=== PATIENT | female | born 1960 | race Caucasian/White ===

== ENCOUNTER 2016-08-28 11:09 | Emergency (ER) | payer BC | END 2016-08-28 11:34 | disposition left against medical advice (07) | LOC: UCCORT 11:09 | DX: R05 Cough (principal); R50.9 Fever, unspecified; Z53.21 Procedure and treatment not carried out due to patient leaving prior to being seen by health care provider ==

== ENCOUNTER 2018-10-02 08:44 | Emergency (ER) | payer BC ==
[2018-10-02 09:03] VITALS: BP 122/89
--- NOTE | 2018-10-02 09:54 | UC ---
Throat Pain/Nasal Manolo HPI - HPI Summary HPI Summary: 58-year-old woman comes in with a chief complaint of 2-3 days of upper respiratory tract infection symptoms. Initially started as runny nose fever bodyaches and dry cough. [id number] medications helped with the fevers and body aches. Rhinorrhea is yellow. She has a sore throat when she coughs otherwise it does not hurt when she swallows. No shortness of breath. - History of Current Complaint Chief Complaint: UCRespiratory Stated Complaint: SINUS CONGESTION,ST Time Seen by Provider: 10/02/18 09:45 Pain Intensity: 1 - Allergies/Home Medications Allergies/Adverse Reactions: Allergies Allergy/AdvReac Type Severity Reaction Status Date / Time codeine Allergy Hallucinati Verified 10/02/18 09:03 ons meperidine [From Demerol] Allergy See Comment Verified 10/02/18 09:03 Home Medications: Home Medications Acetaminophen [Tylophen] 1,000 mg PO 10/02/18 [History] Aspirin 81 mg CHEW TAB* [Aspirin Low Dose TAB*] 81 mg PO DAILY 10/02/18 [ History Confirmed 10/02/18] Metoprolol Tartrate TAB* [Lopressor TAB*] 25 mg PO DAILY 10/02/18 [History Confirmed 10/02/18] Omeprazole 40 mg PO 10/02/18 [History] buPROPion TAB* [Wellbutrin TAB*] 150 mg PO DAILY 10/02/18 [History Confirmed 02/12] PMH/Surg Hx/FS Hx/Imm Hx Previously Healthy: Yes Cardiovascular History: Hypertension GI/ History: Gastroesophageal Reflux - Surgical History Surgical History: Yes Surgery Procedure, Year, and Place: "years ago" - Family History Known Family History: Positive: Non-Contributory - Social History Alcohol Use: Occasionally Substance Use Type: None Smoking Status (MU): Never Smoked Tobacco Review of Systems All Other Systems Reviewed And Are Negative: Yes Constitutional: Positive: Fever, Chills Skin: Positive: Negative Eyes: Positive: Negative ENT: Positive: Sore Throat, Nasal Discharge, Sinus Congestion Respiratory: Positive: Cough Cardiovascular: Positive: Negative Gastrointestinal: Positive: Negative Motor: Positive: Negative Neurovascular: Positive: Negative Neurological: Positive: Negative Is Patient Immunocompromised?: No Physical Exam Triage Information Reviewed: Yes Appearance: No Pain Distress, Well-Nourished, Ill-Appearing - MILD Vital Signs: Initial Vital Signs Temp 98.3 F 10/02/18 09:00 Pulse 77 10/02/18 09:00 Resp 18 10/02/18 09:00 BP 122/89 10/02/18 09:00 Pulse Ox 98 10/02/18 09:00 Vital Signs Reviewed: Yes Eye Exam: Normal Eyes: Positive: Conjunctiva Clear ENT: Positive: Pharyngeal erythema, Nasal congestion, Nasal drainage, TMs normal Neck exam: Normal Neck: Positive: Supple Respiratory: Positive: Lungs clear, Normal breath sounds, No respiratory distress Cardiovascular: Positive: RRR Musculoskeletal Exam: Normal Musculoskeletal: Positive: Strength Intact, ROM Intact Neurological Exam: Normal Neurological: Positive: Alert, Muscle Tone Normal Psychological Exam: Normal Psychological: Positive: Age Appropriate Behavior Skin Exam: Normal Throat Pain/Nasal Course/Dx - Course Course Of Treatment: DISCUSSED VIRAL VERSES BACTERIAL INFECTION AND THE ROLE OF ANTIBIOTICS. THE PATIENT WISHES TO BE ON ANTIBIOTIC AT THIS TIME. - Differential Dx/Diagnosis Provider Diagnosis: Upper respiratory infection Discharge - Sign-Out/Discharge Documenting (check all that apply): Patient Departure All imaging exams completed and their final reports reviewed: No Studies - Discharge Plan Condition: Stable Disposition: HOME Prescriptions: Azithromyxin BRENT (NF) [Z-Brent (Zithromax) 250 mg tabs #6] 2 tab PO .TODAY, THEN 1 DAILY #6 tab Patient Education Materials: Upper Respiratory Infection (ED) Forms: *Work Release Referrals: Jai Powell MD [Primary Care Provider] - Additional Instructions: FOLLOW UP WITH YOUR DOCTOR IF NOT COMPLETELY IMPROVED. GET RECHECKED SOONER WITH ANY WORSENING OF YOUR CONDITION OR QUESTIONS OR CONCERNS. - Billing Disposition and Condition Condition: STABLE Disposition: Home
== END 2018-10-02 09:59 | disposition home or self-care (01) ==
LOC: UCCORT 08:44
DX: J06.9 Acute upper respiratory infection, unspecified (principal); I10 Essential (primary) hypertension; K21.9 Gastro-esophageal reflux disease without esophagitis; Z79.899 Other long term (current) drug therapy; Z88.5 Allergy status to narcotic agent
CPT/HCPCS: 99212; G0463

== ENCOUNTER 2019-09-22 12:33 | Emergency (ER) | payer BC ==
[2019-09-22 14:05] VITALS: BP 124/84
--- NOTE | 2019-09-22 14:33 | UC ---
FLU HPI - HPI Summary HPI Summary: 59-year-old female presents with one-day history of general malaise, fatigue, headache, body aches, nasal congestion, sore throat, and a nonproductive cough. No measured fever but reports chills. Reports her grandson was evaluated at [facility] 2 days ago and tested positive for influenza B. Denies ear pain , dysphagia, chest pain, shortness of breath, abdominal pain, nausea, or vomiting. - History of Current Complaint Chief Complaint: UCRespiratory Stated Complaint: FLU SXS Time Seen by Provider: 09/22/19 14:02 Hx Obtained From: Patient Pain Intensity: 3 - Allergy/Home Medications Allergies/Adverse Reactions: Allergies Allergy/AdvReac Type Severity Reaction Status Date / Time codeine Allergy Hallucinati Verified 10/02/18 09:03 ons meperidine [From Demerol] Allergy See Comment Verified 10/02/18 09:03 PMH/Surg Hx/FS Hx/Imm Hx Previously Healthy: Yes Cardiovascular History: Hypertension GI/ History: Gastroesophageal Reflux Psychological History: Depression - Surgical History Surgical History: Yes Surgery Procedure, Year, and Place: hysterectomy. bladder lift then removal - Family History Known Family History: Positive: Non-Contributory - Social History Occupation: Employed Full-time Lives: With Family Alcohol Use: Occasionally Substance Use Type: None Smoking Status (MU): Never Smoked Tobacco Review of Systems All Other Systems Reviewed And Are Negative: Yes Constitutional: Positive: Chills, Fatigue Eyes: Negative: Drainage, Eye Redness ENT: Positive: Sore Throat, Nasal Discharge, Sinus Congestion. Negative: Ear Ache, Sinus Pain/Tenderness Respiratory: Positive: Cough. Negative: Shortness Of Breath Cardiovascular: Negative: Palpitations, Chest Pain Gastrointestinal: Negative: Abdominal Pain, Vomiting, Diarrhea, Nausea Genitourinary: Positive: Negative Musculoskeletal: Positive: Myalgia Neurological: Positive: Headache Is Patient Immunocompromised?: No Physical Exam - Summary Physical Exam Summary: GENERAL APPEARANCE: Well developed, well nourished, alert and cooperative, and appears to be in no acute distress. EYES: Conjunctiva clear. No drainage. EARS: External auditory canals and tympanic membranes clear, hearing grossly intact. NOSE: Mild-moderate congestion. Clear nasal discharge. THROAT: Pharyngeal erythema. No tonsilar inflammation, swelling, exudate, or lesions. Uvula midline. NECK: Neck supple, non-tender without lymphadenopathy. CARDIAC: Normal S1 and S2. No S3, S4 or murmurs. Rhythm is regular. There is no peripheral edema, cyanosis or pallor. Extremities are warm and well perfused. Capillary refill is less than 2 seconds. Peripheral pulses intact. LUNGS: Clear to auscultation without rales, rhonchi, wheezing or diminished breath sounds. Dry, nonproductive cough. ABDOMEN: Positive bowel sounds. Soft, nondistended, nontender. No guarding or rebound. No masses or hepatosplenomegally. MUSKULOSKELETAL: ROM intact to all extremities. No joint erythema or tenderness. Normal muscular development. Normal gait. SKIN: Skin normal color, texture and turgor with no lesions or eruptions. Triage Information Reviewed: Yes Vital Signs: Initial Vital Signs Temp 99 F 09/22/19 14:01 Pulse 110 09/22/19 14:01 Resp 12 09/22/19 14:01 BP 124/84 09/22/19 14:01 Pulse Ox 99 09/22/19 14:01 Vital Signs Reviewed: Yes Flu Course/Dx - Course Course Of Treatment: 59-year-old female presents with one-day history of general malaise, fatigue, headache, body aches, nasal congestion, sore throat, and a nonproductive cough. No measured fever but reports chills. Reports her grandson was evaluated at [facility] 2 days ago and tested positive for influenza B. Denies ear pain , dysphagia, chest pain, shortness of breath, abdominal pain, nausea, or vomiting. Afebrile. Mildly tachycardic otherwise vital signs stable. Patient had mild amount of nasal congestion, clear nasal discharge, pharyngeal erythema without tonsillar swelling or exudate, no cervical lymphadenopathy, clear bilateral breath sounds, dry, nonproductive cough, and otherwise unremarkable exam. Rapid influenza test was positive for influenza B. Discussed risks and benefits of treatment with Tamiflu and patient is electing to start at this time. Will also recommend symptomatic treatment including Tessalon Perles 1 capsule every 8 hours as needed for cough. She is to follow-up with her primary care provider in 5-7 days if symptoms are not improving. Anticipatory guidance and warning symptoms were discussed with the patient. Verbalizes understanding and agrees to plan of care. - Differential Dx/Diagnosis Differential Diagnosis/HQI/PQRI: Bronchitis, Influenza, Pneumonia, Upper Respiratory Infection Provider Diagnosis: Influenza B Discharge ED - Sign-Out/Discharge Documenting (check all that apply): Patient Departure All imaging exams completed and their final reports reviewed: No Studies - Discharge Plan Condition: Stable Disposition: HOME Prescriptions: Benzonatate CAP* [Tessalon 100 MG CAP*] 100 mg PO TID PRN #21 cap PRN Reason: Cough Oseltamivir CAP* [Tamiflu CAP*] 75 mg PO BID #10 cap Patient Education Materials: Influenza (ED) Forms: *Work Release Referrals: Jai Powell MD [Primary Care Provider] - 5 Days Additional Instructions: Your flu test in the clinic today was positive for influenza B. Start Tamiflu 1 capsule twice a day for 5 days. Get plenty of rest. Drink plenty of fluids to avoid dehydration especially if you are running any fever. Take over the counter acetaminophen (Tylenol) or ibuprofen (Advil, Motrin) according to directions as needed for pain or fever. Take Tessalon Perles 1 cap every 8 hours as needed for cough. Use salt water gargles several times a day if you have a sore throat. You may also use Chloraseptic spray or Cepacol lonzenges according to directions which contain a numbing medication and can provide some temporary relief from your sore throat. Follow up with your primary care provider in 5-7 days if symptoms persist. Seek immediate medical attention in the emergency room if you have fever greater than 100.5 F despite taking acetaminophen or ibuprofen, have chest pain , difficulty breathing, are unable to swallow, or have any worsening of symptoms. - Billing Disposition and Condition Condition: STABLE Disposition: Home - Attestation Statements Provider Attestation: This patient was not seen by me. I was available for consult. Chart reviewed CRISTINE
[2019-09-24 10:15] LABS: Influenza B Molecular POSITIVE (Negative)
== END 2019-09-22 14:45 | disposition home or self-care (01) ==
LOC: UCCORT 12:33
DX: J10.1 Influenza due to other identified influenza virus with other respiratory manifestations (principal); I10 Essential (primary) hypertension; Z88.5 Allergy status to narcotic agent
CPT/HCPCS: 99212; G0463